=== PATIENT | male | born 2005 | race African-American/Black ===

== ENCOUNTER 2024-09-24 11:04 | Emergency (ER) | payer BC | END 2024-09-24 12:00 | disposition home or self-care (01) | LOC: MADERS 11:04 | DX: S80.01XA Contusion of right knee, initial encounter (principal); S80.212A Abrasion, left knee, initial encounter; F17.290 Nicotine dependence, other tobacco product, uncomplicated; W51.XXXA Accidental striking against or bumped into by another person, initial encounter | CPT/HCPCS: 99283 ==